=== PATIENT | female | born 1975 | race Caucasian/White ===

== ENCOUNTER 2017-10-15 16:41 | Outpatient (CLI) | payer MEDICAID ==
[2017-10-15 17:47] LABS: ADD UMIC YES; UR ASCORBIC ACID NEGATIVE (NEGATIVE); UR BACTERIA FEW /HPF (NONE SEEN); UR BILIRUBIN (Dip) NEGATIVE (NEGATIVE); UR BLOOD (Dip) 3+ mg/dL (NEGATIVE); UR CLARITY SLIGHTLY CLOUDY (CLEAR); UR COLOR YELLOW (YELLOW); UR GLUCOSE (Dip) NEGATIVE (NEGATIVE); UR KETONES (Dip) NEGATIVE (NEGATIVE); UR LEUKOCYTE ESTERASE (Dip) NEGATIVE Leu/ul (NEGATIVE); UR MUCUS FEW /HPF (NONE SEEN); UR NITRITE (Dip) NEGATIVE (NEGATIVE); UR RBC 1 /HPF (0-5); UR SPECIFIC GRAVITY (Dip) 1.019 (1.003-1.030); UR SQUAMOUS EPITHELIAL CELL MODERATE /HPF (FEW); UR TOTAL PROTEIN (Dip) NEGATIVE (NEGATIVE); UR UROBILINOGEN (Dip) 2+ mg/dL (NEGATIVE); UR WBC 3 /HPF (0-5)
[2017-10-15] MEDS: NITROFURANTOIN (SR) 100 MG CAP PO (19:48)
== END 2017-10-15 20:53 | disposition home or self-care (01) ==
LOC: OBT 16:41 → L-D 16:42 → OBT 20:53
DX: O46.8X2 Other antepartum hemorrhage, second trimester (principal); Z3A.24 24 weeks gestation of pregnancy
CPT/HCPCS: 76815; 76817; 81001; 87086

== ENCOUNTER 2018-01-15 12:26 | Outpatient (CLI) | payer MEDICAID | END 2018-01-15 16:20 | disposition home or self-care (01) | LOC: OBT 12:26 → L-D 12:27 → OBT 16:20 | DX: O26.873 Cervical shortening, third trimester (principal); O09.523 Supervision of elderly multigravida, third trimester; Z3A.34 34 weeks gestation of pregnancy | CPT/HCPCS: 76817; 76818 ==

== ENCOUNTER 2018-01-28 06:27 | Inpatient (IN) | payer MEDICAID ==
[2018-01-28] MEDS: LACTATED RINGER'S 1,000 ML IV ×2 (07:13→10:28)
[2018-01-28] MEDS ORDERED: LACTATED RINGER'S 500 ML IV (07:30)
[2018-01-28] MEDS ORDERED: OXYTOCIN 30 UNITS/LR 500 ML IV ×2 (07:30)
[2018-01-28] MEDS ORDERED: CARBOPROST 250 MCG INJ IM (07:30)
[2018-01-28] MEDS ORDERED: MISOPROSTOL 200 MCG TAB PR (07:30)
[2018-01-28] MEDS ORDERED: METHYLERGONOVINE 0.2 MG INJ IM (07:30)
[2018-01-28] MEDS ORDERED: BUTORPHANOL 2 MG INJ IV (07:30)
[2018-01-28] MEDS ORDERED: LIDOCAINE 1% (MPF) 30 ML INJ INJ (07:30)
[2018-01-28 08:13] LABS: ADD MAN DIFF? NO
[2018-01-28] MEDS: AMPICILLIN 2 GM/NS (PMX) 100 ML IV (08:15)
[2018-01-28 08:16] LABS: BASOPHILS % 0.3 % (0.0-2.0); EOSINOPHILS # 0.1 10^3/ul (0.0-0.5); EOSINOPHILS % 1.2 % (0.0-7.0); HEMATOCRIT 38.3 % (37.0-47.0); HEMOGLOBIN 13.3 g/dl (12.0-16.0); LYMPHOCYTES # 3.2 10^3/ul (0.8-2.9); LYMPHOCYTES % 29.9 % (15.0-51.0); MEAN CORPUSCULAR HEMOGLOBIN 29.7 pg (29.0-33.0); MEAN CORPUSCULAR HGB CONC 34.7 g/dl (32.0-37.0); MEAN CORPUSCULAR VOLUME 85.5 fl (82.0-101.0); MEAN PLATELET VOLUME 11.7 fl (7.4-10.4); MONOCYTE # 0.9 10^3/ul (0.3-0.9); MONOCYTES % 8.4 % (0.0-11.0); NEUTROPHIL # 6.4 10^3/ul (1.6-7.5); NEUTROPHILS % 59.5 % (39.0-77.0); PLATELET COUNT 264 10^3/UL (140-415); RED BLOOD COUNT 4.48 10^6/ul (4.20-5.40); RED CELL DISTRIBUTION WIDTH 13.4 % (11.5-14.5)
[2018-01-28 08:16] LABS: WHITE BLOOD COUNT 10.7 10^3/ul (4.8-10.8)
[2018-01-28 08:33] LABS: ALANINE AMINOTRANSFERASE 14 IU/L (13-69); ALBUMIN 3.5 g/dl (3.3-4.9); ALBUMIN/GLOBULIN RATIO 1.06; ALKALINE PHOSPHATASE 146 IU/L (42-121); ANION GAP 12 (8-16); ASPARTATE AMINO TRANSFERASE 16 IU/L (15-46); BILIRUBIN,INDIRECT 0.7 mg/dl (0-1.1); BILIRUBIN,TOTAL 0.7 mg/dl (0.2-1.3); BLOOD UREA NITROGEN 6 mg/dl (7-20); CARBON DIOXIDE 22 mmol/L (21-31); CHLORIDE 107 mmol/L (97-110); CREATININE 0.42 mg/dl (0.44-1.00); GLUCOSE 86 mg/dl (70-220); POTASSIUM 3.7 mmol/L (3.5-5.1); SODIUM 137 mmol/L (135-144); TOTAL PROTEIN 6.8 g/dl (6.1-8.1); URIC ACID 3.7 mg/dl (3.1-7.9)
[2018-01-28 08:38] LABS: INR 0.97; PARTIAL THROMBOPLASTIN TIME 29.8 Sec (25.0-35.0)
[2018-01-28 09:03] LABS: HEPATITIS B SURFACE ANTIGEN NEGATIVE (NEGATIVE)
[2018-01-28] MEDS ORDERED: FENTAnyl 2MCG/ML-ROPIV 0.2% 100 ML (09:06)
[2018-01-28] MEDS: OXYTOCIN 30 UNITS/LR 500 ML IV ×3 (09:37→16:44)
[2018-01-28] MEDS: AMPICILLIN 1 GM/NS (PMX) 50 ML IV (11:28)
[2018-01-28] MEDS ORDERED: ONDANSETRON 4 MG INJ IV (17:00)
[2018-01-28] MEDS ORDERED: DIBUCAINE 1% 30 GM OINT PR (17:00)
[2018-01-28] MEDS ORDERED: OXYCODONE/ASPIRIN (4.88/325) TAB PO ×2 (17:00)
[2018-01-28] MEDS ORDERED: HYDROCODONE/APAP (5/325) TAB PO (17:00)
[2018-01-28] MEDS ORDERED: ACETAMINOPHEN 325 MG TAB PO (17:00)
[2018-01-28] MEDS: IBUPROFEN 600 MG TAB PO ×2 (17:46→23:46)
[2018-01-28] MEDS: BENZOCAINE 20% 56 ML SPRAY TOP (17:47)
[2018-01-28] MEDS: WITCH HAZEL/GLYCERIN PAD PR (17:47)
[2018-01-28] MEDS: LANOLIN 7 GM TUBE TOP (17:47)
[2018-01-28 20:00] LABS: RAPID PLASMA REAGIN NONREACTIVE (NR)
[2018-01-28] MEDS: HYDROCODONE/APAP (5/325) TAB PO (20:03)
[2018-01-28] MEDS: SENNA/DOCUSATE NA (8.6MG/50MG) TAB PO (21:00)
[2018-01-29] MEDS: IBUPROFEN 600 MG TAB PO ×3 (05:52→17:44)
[2018-01-29 06:23] LABS: ADD MAN DIFF? NO
[2018-01-29 06:27] LABS: BASOPHILS % 0.2 % (0.0-2.0); EOSINOPHILS # 0.1 10^3/ul (0.0-0.5); EOSINOPHILS % 0.9 % (0.0-7.0); HEMATOCRIT 35.3 % (37.0-47.0); HEMOGLOBIN 12.6 g/dl (12.0-16.0); LYMPHOCYTES # 2.5 10^3/ul (0.8-2.9); LYMPHOCYTES % 18.5 % (15.0-51.0); MEAN CORPUSCULAR HEMOGLOBIN 30.4 pg (29.0-33.0); MEAN CORPUSCULAR HGB CONC 35.7 g/dl (32.0-37.0); MEAN CORPUSCULAR VOLUME 85.3 fl (82.0-101.0); MEAN PLATELET VOLUME 11.5 fl (7.4-10.4); NEUTROPHIL # 9.9 10^3/ul (1.6-7.5); PLATELET COUNT 218 10^3/UL (140-415); RED BLOOD COUNT 4.14 10^6/ul (4.20-5.40); RED CELL DISTRIBUTION WIDTH 13.2 % (11.5-14.5)
[2018-01-29 06:27] LABS: WHITE BLOOD COUNT 13.5 10^3/ul (4.8-10.8)
[2018-01-29] MEDS: SENNA/DOCUSATE NA (8.6MG/50MG) TAB PO ×2 (09:31→21:30)
[2018-01-30] MEDS: IBUPROFEN 600 MG TAB PO ×3 (00:20→12:48)
[2018-01-30] MEDS: WITCH HAZEL/GLYCERIN PAD PR ×2 (05:13→13:42)
[2018-01-30] MEDS: SENNA/DOCUSATE NA (8.6MG/50MG) TAB PO (08:25)
[2018-01-30] MEDS: MEASLES,MUMPS,RUBELLA VACCINE INJ SC* (09:00)
[2018-01-30] MEDS: BENZOCAINE 20% 56 ML SPRAY TOP (13:42)
== END 2018-01-30 13:50 | disposition home or self-care (01) | DRG 775 ==
LOC: OBT 06:27 → L-D 06:28 → OBT 07:26 → L-D 07:12 → PP1 16:56
PROC: 10E0XZZ Delivery of Products of Conception, External Approach (ICD-10-PCS; principal; 2018-01-28)
PROC: 0HQ9XZZ Repair Perineum Skin, External Approach (ICD-10-PCS; 2018-01-28)
PROC: 3E033VJ Introduction of Other Hormone into Peripheral Vein, Percutaneous Approach (ICD-10-PCS; 2018-01-28)
DX: O60.14X0 Preterm labor third trimester with preterm delivery third trimester, not applicable or unspecified (principal); O70.0 First degree perineal laceration during delivery; O69.81X0 Labor and delivery complicated by cord around neck, without compression, not applicable or unspecified; O99.214 Obesity complicating childbirth; E66.01 Morbid (severe) obesity due to excess calories; Z68.38 Body mass index [BMI] 38.0-38.9, adult; Z3A.36 36 weeks gestation of pregnancy; Z37.0 Single live birth
CPT/HCPCS: 36415; 62319; 76815; 80053; 84560; 85025; 85384; 85610; 85730; 86592; 86850; 86900; 86901; 87340